=== PATIENT | male | born 1965 | race Caucasian/White ===

== ENCOUNTER 2016-11-15 23:10 | Emergency (ER) | payer BC, OTHER ==
[~2016-11-15] VITALS: Ht 180.3 cm; Wt 92.6 kg
[~2016-11-15 23:10] MED LIST: AMLO-114 PO; ARIP2TAB3 PO; ARMO150T4 PO; DULO-24 PO; TAMS0.4C38 PO
[2016-11-15 23:12] VITALS: TEMP 36.7; Ht 180.3 cm; Wt 92.6 kg
[2016-11-15] MEDS ORDERED: SODIUM CHLORIDE 0.9% 1000ML 1,000 ML IV ONE (23:30)
[2016-11-15] MEDS ORDERED: MoRPHine SULFATE 4 MG/ML 1 ML CARP\\VIAL IV ONE (23:30)
[2016-11-15 23:51] LABS: BASO % 0.8 %; BASO ABS # 0.08 K/uL (0-0.2); COMPLETE YES; EOS % 0.9 %; HEMATOCRIT 44.4 % (42-52); IG% 0.8 %; LYMPH % 10.5 %; LYMPH ABS # 1.09 K/uL (1.2-3.4); MEAN CELL VOLUME 80.7 fL (80-100); MEAN CORPUSCULAR HEMOGLOBIN 28.5 pg (25-34); MEAN CORPUSCULAR HGB CONC 35.4 g/dl (32-36); MEAN PLATELET VOLUME 9.8 fL (7.4-10.4); MONO % 8.8 %; NEUT % 78.2 %; PLATELET COUNT 253 K/uL (130-400); WHITE BLOOD COUNT 10.34 K/uL (4.8-10.8)
[2016-11-15 23:52] LABS: URINE APPEARANCE CLOUDY (CLEAR); URINE BILIRUBIN NEG (NEG); URINE COLOR YELLOW; URINE EPITHELIAL CELL AUTO >30 /lpf (0-5); URINE NITRITE NEG (NEG); URINE SPECIFIC GRAVITY 1.024 (1.000-1.030); UROBILINOGEN NEG (NEG)
[2016-11-15 23:57] LABS: MANUAL MICROSCOPIC REQUIRED? NO; REVIEW REQ? YES
[2016-11-16 00:11] LABS: BUN/CREATININE RATIO 10.1 (10-20); CALCIUM 8.7 mg/dl (8.5-10.1); CREATININE 1.4 mg/dl (0.60-1.40); POTASSIUM 3.5 mmol/L (3.5-5.1)
[2016-11-16 00:14] LABS: ALB/GLOB RATIO 1.5 (0.9-2)
[2016-11-16 00:18] LABS: URINE MUCUS PRESENT (NONE PRSENT)
[2016-11-16] MEDS ORDERED: TRAZ100T29 PO (00:43)
[2016-11-16] MEDS ORDERED: BUSP15TA70 PO (00:43)
[2016-11-16] MEDS ORDERED: AMLO-110 PO (00:43)
[2016-11-16] MEDS ORDERED: FLUO40CA8 PO (00:44)
[2016-11-16] MEDS ORDERED: HYDR50CA2 PO (00:45)
[2016-11-16] MEDS ORDERED: OLAN-80 PO (00:46)
[2016-11-16] MEDS ORDERED: ONDA4TAB10 SL (01:12)
[2016-11-16] MEDS ORDERED: OXYC1TAB3 PO (01:12)
[2016-11-16 01:23] VITALS: BP 146/98; PULSE 78; O2SAT 98
[2016-11-16 04:29] LABS: ZZUR CULT IF INDIC CLEAN CATCH NO
--- NOTE | 2016-11-16 05:21 | EMERGENCY ROOM VISIT NOTE ---
History First contact with patient: 23:17 Chief Complaint: TESTICULAR PAIN Stated Complaint: PAIN IN TESTICLES,UNABLE TO URINATE Nursing Triage Summary: c/o testicular pain and pressure since last night. History of Present Illness The patient is a 51 year old male who presents to the Emergency Room with complaints of testicle pain and pressure for the past one day. The patient states that he has difficulty with urination. He is currently incarcerated. He did receive 600 mg ibuprofen this evening from the [facility]. The patient is not complaining of fever, chills, back pain, or abdominal pain. No history of abdominal surgery. He does have a history of kidney stones times one episode in the past. He rates his current discomfort a dull and persistent 6/ 10. Review of Systems More than 10 systems were reviewed and otherwise negative with the exception of history of present illness. Past Medical/Surgical History Medical Problems: (1) Depression (2) Hypertension Family History Patient reports no known family medical history. Social History Smoking Status: Never Smoker Alcohol Use: occasionally Marital Status: Housing Status: lives with family Occupation Status: employed Current/Historical Medications Scheduled Amlodipine (Norvasc), 5 MG PO DAILY Buspirone Hcl (Buspar), 15 MG PO TID Fluoxetine (Prozac), 40 MG PO DAILY Olanzapine (Zyprexa), 2.5 MG PO HS Ondasetron Odt (Zofran Odt), 4 MG SL Q6H Oxycodone Immediate Rel Tab (Roxicodone Ir), 1-2 TAB PO Q6 Tamsulosin Hcl (Flomax), 0.4 MG PO DAILY Trazodone Hcl (Trazodone), 100 MG PO HS Scheduled PRN Hydroxyzine Pamoate (Vistaril), 50 MG PO QID PRN for UNDECIDED Allergies Coded Allergies: No Known Allergies (Unverified , 11/16/16) Physical Exam Vital Signs Date Time Temp Pulse Resp B/P (MAP) Pulse Ox O2 Delivery O2 Flow Rate FiO2 11/16/16 01:23 78 18 146/98 98 11/16/16 00:17 74 18 138/96 96 Room Air 11/15/16 23:12 36.7 81 18 150/101 96 Room Air Pain Rating (0-10): 2.0 Physical Exam VITALS: Vitals are noted on the nurse's note and reviewed by myself. Vital signs stable. GENERAL: Well-developed, well-nourished, white male, who is in no acute distress and resting comfortably. Patient is cooperative with the examination. HEAD: Normocephalic atraumatic. HEART: Regular rate and rhythm without murmurs gallops or rubs. LUNGS: Clear to auscultation bilaterally without wheezes, rales or rhonchi. No retractions or accessory muscle use. ABDOMEN: Positive normal bowel sounds x 4. Soft, nontender, without masses or organomegaly. No guarding or rebound tenderness. No CVA tenderness : Normal-appearing external male genitalia without urethral drainage or discharge. The testicles are without significant tenderness, mass, or lesion. MUSCULOSKELETAL: No muscle atrophy, erythema, or edema noted. Full range of motion without joint tenderness in all extremities. Medical Decision & Procedures ER Provider Diagnostic Interpretation: Preliminary Findings Only See Final Report For Complete Findings US SCROTAL: Small bilateral hydroceles. Blood flow seen to bilateral testicles. There does appear to be some increased blood flow to left testicle compared to the right. Cannot exclude left-sided orchitis. However, there is a left bladder side UVJ stone seen on CT which may be etiology of patient's pain. See CT results to follow. Preliminary Findings Only See Final Report For Complete Findings CT ABDOMEN & PELVIS: Stone measuring about 3 mm in size at bladder side left UVJ. Mild distention of left ureter and collecting system. Nonobstructive renal stones. Trace pericardial fluid. Small hiatal hernia. Portions of the colon underdistended limiting evaluation for wall thickening. No pericolonic inflammatory changes. There is some infiltration of the colon wall with fat suspected which may represent remote episodes of inflammation. Fat-containing inguinal hernias and other nonemergent, incidental findings. Laboratory Results 11/15/16 23:38 Red Blood Count 5.50, Mean Corpuscular Volume 80.7, Mean Corpuscular Hemoglobin 28.5, Mean Corpuscular Hemoglobin Concent 35.4, Mean Platelet Volume 9.8, Neutrophils (%) (Auto) 78.2, Lymphocytes (%) (Auto) 10.5, Monocytes (%) (Auto) 8.8, Eosinophils (%) (Auto) 0.9, Basophils (%) (Auto) 0.8, Neutrophils # (Auto) 8.09, Lymphocytes # (Auto) 1.09, Monocytes # (Auto) 0.91, Eosinophils # (Auto) 0.09, Basophils # (Auto) 0.08 11/15/16 23:38 Test 11/15/16 23:35 11/15/16 23:38 Urine Color YELLOW Urine Appearance CLOUDY (CLEAR) Urine pH 5.0 (4.5-7.5) Urine Specific Raymond 1.024 (1.000-1.030) Urine Protein TRACE (NEG) Urine Glucose (UA) NEG (NEG) Urine Ketones TRACE (NEG) Urine Occult Blood 3+ (NEG) Urine Nitrite NEG (NEG) Urine Bilirubin NEG (NEG) Urine Urobilinogen NEG (NEG) Urine Leukocyte Esterase NEG (NEG) Urine WBC (Auto) 1-5 /hpf (0-5) Urine RBC (Auto) >30 /hpf (0-4) Urine Hyaline Casts (Auto) 10-30 /lpf (0-5) Urine Epithelial Cells (Auto) >30 /lpf (0-5) Urine Bacteria (Auto) NEG (NEG) Urine Crystals CALCIUM OXALATE (NONE Urine Mucus PRESENT (NONE PRSENT) Urine Yeast (Auto) (NONE PRSENT) White Blood Count 10.34 K/uL (4.8-10.8) Red Blood Count 5.50 M/uL (4.7-6.1) Hemoglobin 15.7 g/dL (14.0-18.0) Hematocrit 44.4 % (42-52) Mean Corpuscular Volume 80.7 fL (80-100) Mean Corpuscular Hemoglobin 28.5 pg (25-34) Mean Corpuscular Hemoglobin Concent 35.4 g/dl (32-36) Platelet Count 253 K/uL (130-400) Mean Platelet Volume 9.8 fL (7.4-10.4) Neutrophils (%) (Auto) 78.2 % Lymphocytes (%) (Auto) 10.5 % Monocytes (%) (Auto) 8.8 % Eosinophils (%) (Auto) 0.9 % Basophils (%) (Auto) 0.8 % Neutrophils # (Auto) 8.09 K/uL (1.4-6.5) Lymphocytes # (Auto) 1.09 K/uL (1.2-3.4) Monocytes # (Auto) 0.91 K/uL (0.11-0.59) Eosinophils # (Auto) 0.09 K/uL (0-0.5) Basophils # (Auto) 0.08 K/uL (0-0.2) RDW Standard Deviation 39.8 fL (36.4-46.3) RDW Coefficient of Variation 13.5 % (11.5-14.5) Immature Granulocyte % (Auto) 0.8 % Immature Granulocyte # (Auto) 0.08 K/uL (0.00-0.02) Anion Gap 8.0 mmol/L (3-11) Est Creatinine Clear Calc Drug Dose 74.2 ml/min Estimated GFR () 67.9 Estimated GFR (Non- 58.6 BUN/Creatinine Ratio 10.1 (10-20) Calcium Level 8.7 mg/dl (8.5-10.1) Total Bilirubin 0.9 mg/dl (0.2-1) Aspartate Amino Transf (AST/SGOT) 11 U/L (15-37) Alanine Aminotransferase (ALT/SGPT) 21 U/L (12-78) Alkaline Phosphatase 107 U/L (45-117) Total Protein 6.6 gm/dl (6.4-8.2) Albumin 4.0 gm/dl (3.4-5.0) Globulin 2.6 gm/dl (2.5-4.0) Albumin/Globulin Ratio 1.5 (0.9-2) Lipase 124 U/L (73-393) Medications Administered Medications (Trade) Dose Ordered Sig/Marc Route Start Time Stop Time Status Last Admin Dose Admin Sodium Chloride 1,000 ml @ 999 mls/hr Q1H1M ONCE IV 11/15/16 23:30 11/16/16 00:30 DC 11/15/16 23:37 999 MLS/HR Morphine Sulfate (MoRPHine SULFATE INJ) 4 mg NOW ONCE IV 11/15/16 23:30 11/15/16 23:31 DC 11/15/16 23:37 4 MG ED Course Physical exam and history were performed. Nursing notes and EMR were reviewed. Patient appears to have testicular pain for the past one day. IV access was established and labs were obtained. Patient was hydrated and medicated as above. Ultrasound was performed. The patient's blood work is as above and was reviewed. He does not have a significantly elevated white blood cell count or gross anemia, bandemia, or significant electrolyte imbalance. His urine is with blood and calcium oxalate. Ultrasound does not show obvious scrotal/testicular abnormality, but does reveal a small stone. CT scan was performed, and does confirm a small 3 mm UVJ stone. Overall the patient appears stable for discharge. His symptoms do correlate with a ureteral calculi. He will be given a prescription for oxycodone for pain control. He is to follow with the medical staff in the [facility] for continued management. I do recommend that he follow with urology. The patient was otherwise invited next week ER with any new, worsening, or concerning symptoms. The chart was completed utilizing [employer] Speech Voice Recognition Software. Grammatical errors, random word insertions, pronoun errors, and incomplete sentences are an occasional consequence of this system due to software limitations, ambient noise, and hardware issues. Any formal questions or concerns about the content, text, or information contained within the body of this dictation should be directly addressed to the provider for clarification. . Medical Decision Differential diagnosis: Etiologies such as renal colic, appendicitis, diverticulitis, mesenteric ischemia, aortic pathology, infections, inflammatory bowel disease, PUD, biliary pathology, UTI, as well as others were entertained. Impression Primary Impression: Calculus of distal left ureter Departure Information Dispostion Home / Self-Care Condition GOOD Prescriptions Ondasetron Odt (ZOFRAN ODT) 4 Mg Tab 4 MG SL Q6H for Nausea, #12 TAB Prov: Sai Murphy PA-C 11/16/16 Oxycodone Immediate Rel Tab (ROXICODONE IR) 5 Mg Tab 1-2 TAB PO Q6 for Pain, #24 TAB For initial therapy Prov: Sai Murphy PA-C 11/16/16 Forms HOME CARE DOCUMENTATION FORM, IMPORTANT VISIT INFORMATION Patient Instructions My [facility] Additional Instructions You were seen and evaluated today on an emergency basis only. This is not a substitute for, or an effort to provide, complete comprehensive medical care. It is not possible to recognize and treat all injuries or illnesses in a single emergency department visit. For this reason it is recommended that you followup with the Medical staff for ongoing care and evaluation. You will need follow-up by urology as you have a left-sided kidney stone. For baseline pain relief you may alternate ibuprofen and acetaminophen every 4 hours for pain control. Take 600 mg ibuprofen (Advil) and then 4 hours later take 1000 mg acetaminophen (Tylenol). Do not take more than 3000 mg acetaminophen in a single day. Oxycodone (OxyIR) 5mg: Take ONE or TWO pills every SIX hours for breakthrough pain. Avoid alcohol, operating machinery or dangerous equipment, working on ladders or roofs, DRIVING, or situations where being under the influence may be dangerous. It is recommended to use an [id number] stool softener such as Colace, 100mg twice daily while taking this medication to avoid constipation. Zofran 1 tablet every 6 hrs as needed for nausea. You are welcome to return to the emergency department anytime with new, worsening, or concerning symptoms.
--- NOTE | 2016-11-16 07:05 | DIAGNOSTIC IMAGING REPORT ---
CT OF THE ABDOMEN AND PELVIS WITHOUT CONTRAST, STONE PROTOCOL CLINICAL HISTORY: Testicle pain. Hematuria. Hx stones. COMPARISON STUDY: None. TECHNIQUE: Helical axial images of the abdomen and pelvis were obtained without IV or oral contrast according to renal stone protocol. FINDINGS: A 3 mm left ureterovesical junction calculus results in mild left hydroureteronephrosis with perinephric infiltration. There is a punctate calculus within the upper pole of the left kidney. Several right renal calculi measure up to 4 mm. Evaluation the remainder of the abdomen and pelvis is suboptimal on this unenhanced exam. The liver, spleen, adrenal glands and pancreas are unremarkable. The appendix is normal. There is no evidence for a bowel obstruction. There are fat-containing bilateral inguinal hernias. No suspicious skeletal lesions are identified. There is no lymphadenopathy. IMPRESSION: 1. 3 mm left ureterovesical junction calculus with resultant mild left hydroureteronephrosis. 2. Bilateral nephrolithiasis. 3. Fat-containing bilateral inguinal hernias. Electronically signed by: Husam Montaño M.D. 11/16/2016 7:04 AM Dictated Date/Time: 11/16/2016 7:01 AM
--- NOTE | 2016-11-16 07:08 | DIAGNOSTIC IMAGING REPORT ---
TESTICULAR ULTRASOUND CLINICAL HISTORY: testicle pain COMPARISON STUDY: No previous studies for comparison. FINDINGS: The right testis measures 49 x 23 x 33 mm. The left testis measures 49 x 24 x 29 mm. No intratesticular masses are visualized. No epididymal masses are visualized. There is no evidence of testicular torsion. There is very slight increased blood flow to the left testis as compared to the right. This is of questionable clinical significance as epididymal blood flow appears symmetric. IMPRESSION: 1. No evidence of intratesticular mass 2. No evidence of testicular torsion. Electronically signed by: Bob Horta M.D. 11/16/2016 7:07 AM Dictated Date/Time: 11/16/2016 7:05 AM
== END 2016-11-16 01:24 | disposition home or self-care (01) ==
LOC: C.EDB 23:13 → C.EDA 11-16 01:24
DX: N20.1 Calculus of ureter (principal); F32.9 Major depressive disorder, single episode, unspecified; I10 Essential (primary) hypertension; Z79.899 Other long term (current) drug therapy